=== PATIENT | female | born 2000 | race Caucasian/White ===

== ENCOUNTER 2024-12-27 23:06 | Emergency (ER) | payer BC ==
[2024-12-27] MEDS ORDERED: TYLENOL 325 MG ONE (23:20)
[2024-12-27 23:21] VITALS: RESP 20; TEMP 98; O2SAT 98
[2024-12-27] MEDS: TYLENOL 325 MG PO ONE (23:21)
--- NOTE | 2024-12-27 23:21 | ERPHSYRPT ---
- History of Present Illness Time Seen by Provider: 12/27/24 23:16 Source: patient Exam Limitations: no limitations Physician History: 24-year-old female presents to our ED for evaluation of pain to her left lateral ankle. Patient states she was walking into a restaurant this afternoon at approximately 4 PM. Patient "rolled" her ankle. Patient states she fell to the floor. No other injuries reported. Patient has been ambulating on her ankle since her injury however she states the pain is still significant and so decided to come to our ED for an evaluation. Pain described as an ache that is localized. No radiation. Pain worse with movement palpation and weightbearing. Pain improves with rest. Patient adds that she is currently 8 weeks . Patient requesting pain medication. She is agreeable to Tylenol. Significant other at bedside. They voiced no other complaints or concerns at this time. Portions of this note were created with voice recognition technology. There may be grammatical, spelling, punctuation or sound alike errors Method of Injury: twisted Occurred: this afternoon Quality: constant Severity of Pain-Max: moderate Severity of Pain-Current: mild Lower Extremities Pain: ankle: left Modifying Factors: Improves With: movement Associated Symptoms: none Allergies/Adverse Reactions: No Known Drug Allergies Allergy (Unverified 12/27/24 23:21) Home Medications: No Reportable Medications [No Reported Medications] 12/27/24 [History] - Review of Systems All Other Systems: Reviewed and Negative - Female History Hx Now: Yes - Nursing Vital Signs Nursing Vital Signs: Initial Vital Signs Temperature 98.0 F 12/27/24 23:10 Pulse Rate 111 H 12/27/24 23:10 Respiratory Rate 20 12/27/24 23:10 Blood Pressure 122/73 12/27/24 23:10 O2 Sat by Pulse Oximetry 100 12/27/24 23:10 Pain Scale Pain Intensity 7 - Physical Exam General Appearance: alert Neck Exam: normal inspection, supple, full range of motion Cardiovascular/Respiratory Exam: no respiratory distress Back Exam: normal inspection, normal range of motion, No vertebral tenderness Hips Exam: bilateral: non-tender, normal inspection, normal range of motion, no evidence of injury Legs Exam: bilateral leg: non-tender, normal inspection, normal range of motion, no evidence of injury Knees Exam: bilateral knee: non-tender, normal inspection, normal range of motion, no evidence of injury Ankle Exam: right ankle: non-tender, normal inspection, normal range of motion, no evidence of injury, left ankle: pain, soft tissue tenderness (Tenderness to palpation at the left ATFL ligament. Overlying soft tissue intact.), other (The involved left lower extremities neurovasc intact distally compartments are soft cap refill less than 2 seconds.) Neuro/Tendon Exam: normal sensation, normal motor functions Mental Status Exam: alert, oriented x 3, cooperative Skin Exam: normal color, warm, dry SpO2 Interpretation: normal SpO2: 98 O2 Delivery: Room Air - Course Nursing assessment & vital signs reviewed: Yes - Radiology Exams Ankle X-ray Interpretation: Interpreted by me (No fracture or dislocation) Ordered Tests: Active Orders 24 hr Category Date Time Status ANKLE (3 VIEWS) Stat Exams 12/27/24 23:14 Ordered Medication Summary Discontinued Medications Generic Name Dose Route Start Last Admin Trade Name Freq PRN Reason Stop Dose Admin Acetaminophen 975 mg 12/27/24 23:14 12/27/24 23:21 Acetaminophen 325 Mg Tablet PO 12/27/24 23:15 975 mg STAT ONE Administration Acetaminophen Confirm 12/27/24 23:20 Acetaminophen 325 Mg Tablet Administered 12/27/24 23:21 Dose 975 mg .ROUTE .STK-MED ONE - Progress Progress: improved Progress Note: 24-year-old female presents to our ED for evaluation of pain to her left lateral ankle. Patient states she was walking into a restaurant this afternoon at approximately 4 PM. Patient "rolled" her ankle. Patient states she fell to the floor. No other injuries reported. Physical exam reveals tenderness palpation over the left ATFL ligament at the lateral ankle. Overlying soft tissue intact. No open or draining lesions. The involved extremities neurovascular intact distally compartments are soft cap refill less than [address] Newton independently reviewed and interpreted the x-ray. X-ray negative for fracture or dislocation. This is a preliminary read. Formal read pending. Patient likely experiencing an ankle sprain. Patient referred to the orthopedic clinic for follow-up. Portions of this note were created with voice recognition technology. There may be grammatical, spelling, punctuation or sound alike errors History obtained from patient and significant other who was at the bedside. Differential diagnosis includes ankle sprain, fracture, tendinitis Complexity of problems addressed is moderate acute complicated. No critical care time. Complexity of data reviewed and analyzed is moderate. Test ordered test reviewed results analyzed and correlated clinically with history and physical exam. Dr. Newton independently reviewed and interpreted the x-ray. However this is a preliminary read. Formal read pending. Risk of complication and or risk of morbidity/mortality of patient management is low. Vital stable. Time spent to discharge patient is approximately 15 minutes. Plan of care established for shared decision making. No social determinants of health present to impede follow-up. Patient declined crutches. She also declined an Sincere wrap Portions of this note were created with voice recognition technology. There may be grammatical, spelling, punctuation or sound alike errors 12/27/24 23:22 Counseled pt/family regarding: diagnosis, need for follow-up, rad results - Departure Departure Disposition: Home Clinical Impression: Ankle sprain Condition: Stable Critical Care Time: No Referrals: MATEO RODRIGUES MD [Primary Care Provider, [facility] [place] - Follow up/PCP as directed Additional Instructions: Discharge/Care Plan TOBI POOLE was seen on 12/27/24 in the Emergency Room. The patient was counseled regarding Diagnosis,Lab results, Imaging studies, need for follow up and when to return to the Emergency Room. Prescriptions given: Discharge Note I have spoken with the patient and/or caregivers. I have explained the patient's condition, diagnosis and treatment plan based on the information available to me at this time. I have answered the patient's and/or caregiver's questions and addressed any concerns. The patient and/or caregivers have as good understanding of the patient's diagnosis, condition and treatment plan as can be expected at this point. The vital signs have been stable. The patient's condition is stable and appropriate for discharge from the emergency department. The patient will pursue further outpatient evaluation with the primary care physician or other designated or consulting physician as outlined in the discharge instructions. The patient and/or caregivers are agreeable to this plan of care and follow-up instructions have been explained in detail. The patient and/or caregivers have received these instruction. The patient/and or caregivers are aware that any significant change in condition or worsening of symptoms should prompt an immediate return to this or the closest emergency department or call 911. Outpatient Orders: Ortho Referral Time Frame: 1 Day, Facility: [facility]. Hosp, Location: [facility]
[2024-12-28 00:02] VITALS: BP 123/79; PULSE 99
--- NOTE | 2024-12-28 09:32 | XRAY ---
Indication: Pain. Comparison: None 3 view left ankle demonstrates 4 mm round heterotopic ossification tip lateral malleolus either developmental versus sequela old injury. No other bony, articular, or soft tissue abnormalities.
== END 2024-12-27 23:55 | disposition home or self-care (01) ==
LOC: ED 23:06
DX: S93.402A Sprain of unspecified ligament of left ankle, initial encounter (principal); W01.0XXA Fall on same level from slipping, tripping and stumbling without subsequent striking against object, initial encounter; Y93.01 Activity, walking, marching and hiking; Y92.511 Restaurant or cafe as the place of occurrence of the external cause